=== PATIENT | female | born 1985 | race Caucasian/White ===

== ENCOUNTER 2016-12-15 07:57 | Emergency (ER) | payer OTHER ==
[2016-12-15] MEDS ORDERED: Sodium Chloride 0.9% 1,000 ML IV ONE ×3 (08:04→11:13)
[2016-12-15] MEDS ORDERED: Sodium Chloride 0.9% 2.5 ML Syringe FLUSH PRN (08:05)
[2016-12-15] MEDS ORDERED: Sodium Chloride 0.9% 10 ML Syringe FLUSH PRN (08:05)
--- NOTE | 2016-12-15 08:19 | EDM.PDOC ---
ED HPI GENERAL MEDICAL PROBLEM - General Chief Complaint: Gastrointestinal Problem Stated Complaint: AMBULANCE Time Seen by Provider: 12/15/16 07:59 Source of Information: Reports: Patient History Limitations: Reports: No Limitations - History of Present Illness INITIAL COMMENTS - FREE TEXT/NARRATIVE: History of present illness: [] Patient awoke this morning with severe dizziness described as spinning with nausea and vomiting. She vomited several times before calling an ambulance she is unable to move secondary to the dizziness. She denies any recent illnesses nasal congestion ear pain but states her throat has been hurting secondary to enterococcal within normal. Review of systems: As per history of present illness and below otherwise all systems reviewed and negative. Past medical history: As per history of present illness and as reviewed below otherwise noncontributory. Surgical history: As per history of present illness and as reviewed below otherwise noncontributory. Social history: No reported history of drug or alcohol abuse. Family history: As per history of present illness and as reviewed below otherwise noncontributory. Physical exam: General: Well developed, well nourished in NAD HEENT: Atraumatic, normocephalic, pupils reactive, negative for conjunctival pallor or scleral icterus, mucous membranes moist, throat clear, neck supple, nontender, trachea midline. Lungs: Clear to auscultation, breath sounds equal bilaterally, chest nontender. Heart: S1S2, regular, negative for clicks, rubs, or JVD. Abdomen: Soft, nondistended, nontender. Negative for masses or hepatosplenomegaly. Negative for costovertebral tenderness. Pelvis: Stable nontender. Genitourinary: Deferred. Rectal: Deferred. Extremities: Atraumatic, negative for cords or calf pain. Neurovascular unremarkable. Neuro: Awake, alert, oriented. Cranial nerves II through XII unremarkable. Cerebellum unremarkable. Motor and sensory unremarkable throughout. Exam nonfocal. Diagnostics: [] Labs were checked Therapeutics: [] IV hydration, meclizine Zofran and Valium given with minimal improvement she was hydrated with 3 L of normal saline and Phenergan given finely worked. Impression: [] Benign positional vertigo Plan: [] Followup PMD, meclizine 3 times a day as needed for nausea and meclizine 25 mg 3 times a day or dizziness Definitive disposition and diagnosis as appropriate pending reevaluation and review of above. - Related Data Allergies Allergy/AdvReac Type Severity Reaction Status Date / Time No Known Allergies Allergy Verified 12/15/16 08:04 Home Meds: Home Meds Meclizine [Antivert] 25 mg PO TID PRN #30 tablet 12/15/16 [Rx] Ondansetron HCl [Zofran] 4 mg PO Q6HR PRN #12 tablet 12/15/16 [Rx] Promethazine [Phenergan] 25 mg PO Q4H PRN #12 tablet 12/15/16 [Rx] Past Medical History - Past Health History Medical/Surgical History: Denies Medical/Surgical History - Past Surgical History GI Surgical History: Reports: Cholecystectomy Female Surgical History: Reports: section Social & Family History - Family History Family Medical History: Noncontributory - Tobacco Use Smoking Status *Q: Never Smoker - Recreational Drug Use Recreational Drug Use: No ED ROS GENERAL - Review of Systems Review Of Systems: See Below (See history of present illness) ED EXAM, NEURO - Physical Exam Exam: See Below (See history of present illness) Course - Vital Signs Last Recorded V/S: Last Vital Signs Temp 35.8 C 12/15/16 08:02 Pulse 87 12/15/16 13:42 Resp 16 12/15/16 13:42 BP 129/74 12/15/16 13:42 Pulse Ox 98 12/15/16 13:42 - Orders/Labs/Meds Orders: Active Orders 24 hr Category Date Time Status Sodium Chloride 0.9% [Saline Flush] Med 12/15/16 08:05 Active 10 ml FLUSH ASDIRECTED PRN Sodium Chloride 0.9% [Saline Flush] Med 12/15/16 08:05 Active 2.5 ml FLUSH ASDIRECTED PRN Peripheral IV Insertion Adult [OM.PC] Stat Oth 12/15/16 08:04 Ordered Medication Orders Sodium Chloride (Saline Flush) 10 ml FLUSH ASDIRECTED PRN PRN Reason: Keep Vein Open Sodium Chloride (Saline Flush) 2.5 ml FLUSH ASDIRECTED PRN PRN Reason: Keep Vein Open Labs: Laboratory Tests 12/15/16 12/15/16 12/15/16 Range/Units 08:14 08:14 08:14 WBC 7.91 (4.0-11.0) K/uL RBC 4.65 (4.30-5.90) M/uL Hgb 14.2 (12.0-16.0) g/dL Hct 40.3 (36.0-46.0) % MCV 86.7 (80.0-98.0) fL MCH 30.5 (27.0-32.0) pg MCHC 35.2 (31.0-37.0) g/dL RDW Std Deviation 40.6 (28.0-62.0) fl RDW Coeff of Aziza 13 (11.0-15.0) % Plt Count 241 (150-400) K/uL MPV 10.60 (7.40-12.00) fL Neut % (Auto) 77.9 (48.0-80.0) % Lymph % (Auto) 15.7 L (16.0-40.0) % [place] % (Auto) 4.6 (0.0-15.0) % Eos % (Auto) 1.5 (0.0-7.0) % Baso % (Auto) 0.3 (0.0-1.5) % Neut # (Auto) 6.2 H (1.4-5.7) K/uL Lymph # (Auto) 1.2 (0.6-2.4) K/uL [place] # (Auto) 0.4 (0.0-0.8) K/uL Eos # (Auto) 0.1 (0.0-0.7) K/uL Baso # (Auto) 0.0 (0.0-0.1) K/uL Nucleated RBC % 0.0 /100WBC Nucleated RBCs # 0 K/uL Sodium 139 (136-146) mmol/L Potassium 3.8 (3.5-5.1) mmol/L Chloride 109 (98-110) mmol/L Carbon Dioxide 16 L (21-31) mmol/L BUN 19 (6.0-23.0) mg/dL Creatinine 1.1 (0.6-1.5) mg/dL Est Cr Clr Drug Dosing 81.30 mL/min Estimated GFR (MDRD) 57.2 ml/min Glucose 175 H (60-110) mg/dL Calcium 9.5 (8.8-10.8) mg/dL Total Bilirubin 1.1 (0.1-1.5) mg/dL AST 19 (5-40) IU/L ALT 22 (8-54) IU/L Alkaline Phosphatase 40 (40-150) Total Protein 7.3 (6.0-8.0) g/dL Albumin 4.7 (3.5-5.0) g/dL Globulin 2.6 (2.0-3.5) g/dL Albumin/Globulin Ratio 1.8 (1.3-2.8) HCG, Qual NEGATIVE (NEG) Urine Color Urine Appearance Urine pH (5.0-8.0) Ur Specific [place] (1.001-1.035) Urine Protein (NEGATIVE) mg/dL Urine Glucose (UA) (NEGATIVE) mg/dL Urine Ketones (NEGATIVE) mg/dL Urine Occult Blood (NEGATIVE) Urine Nitrite (NEGATIVE) Urine Bilirubin (NEGATIVE) Urine Urobilinogen (<2.0) EU/dL Ur Leukocyte Esterase (NEGATIVE) Urine RBC (0-2/HPF) Urine WBC (0-5/HPF) Ur Epithelial Cells (NONE-FEW) Urine Bacteria (NEGATIVE) 12/15/16 Range/Units 12:35 WBC (4.0-11.0) K/uL RBC (4.30-5.90) M/uL Hgb (12.0-16.0) g/dL Hct (36.0-46.0) % MCV (80.0-98.0) fL MCH (27.0-32.0) pg MCHC (31.0-37.0) g/dL RDW Std Deviation (28.0-62.0) fl RDW Coeff of Aziza (11.0-15.0) % Plt Count (150-400) K/uL MPV (7.40-12.00) fL Neut % (Auto) (48.0-80.0) % Lymph % (Auto) (16.0-40.0) % [place] % (Auto) (0.0-15.0) % Eos % (Auto) (0.0-7.0) % Baso % (Auto) (0.0-1.5) % Neut # (Auto) (1.4-5.7) K/uL Lymph # (Auto) (0.6-2.4) K/uL [place] # (Auto) (0.0-0.8) K/uL Eos # (Auto) (0.0-0.7) K/uL Baso # (Auto) (0.0-0.1) K/uL Nucleated RBC % /100WBC Nucleated RBCs # K/uL Sodium (136-146) mmol/L Potassium (3.5-5.1) mmol/L Chloride (98-110) mmol/L Carbon Dioxide (21-31) mmol/L BUN (6.0-23.0) mg/dL Creatinine (0.6-1.5) mg/dL Est Cr Clr Drug Dosing mL/min Estimated GFR (MDRD) ml/min Glucose (60-110) mg/dL Calcium (8.8-10.8) mg/dL Total Bilirubin (0.1-1.5) mg/dL AST (5-40) IU/L ALT (8-54) IU/L Alkaline Phosphatase (40-150) Total Protein (6.0-8.0) g/dL Albumin (3.5-5.0) g/dL Globulin (2.0-3.5) g/dL Albumin/Globulin Ratio (1.3-2.8) HCG, Qual (NEG) Urine Color YELLOW Urine Appearance CLEAR Urine pH 6.5 (5.0-8.0) Ur Specific [place] 1.015 (1.001-1.035) Urine Protein NEGATIVE (NEGATIVE) mg/dL Urine Glucose (UA) NEGATIVE (NEGATIVE) mg/dL Urine Ketones 40 H (NEGATIVE) mg/dL Urine Occult Blood LARGE H (NEGATIVE) Urine Nitrite NEGATIVE (NEGATIVE) Urine Bilirubin NEGATIVE (NEGATIVE) Urine Urobilinogen 0.2 (<2.0) EU/dL Ur Leukocyte Esterase NEGATIVE (NEGATIVE) Urine RBC 2-4 (0-2/HPF) Urine WBC 0-2 (0-5/HPF) Ur Epithelial Cells FEW (NONE-FEW) Urine Bacteria FEW (NEGATIVE) Meds: Medications Generic Name Dose Route Start Last Admin Trade Name Freq PRN Reason Stop Dose Admin Sodium Chloride 10 ml 12/15/16 08:05 Saline Flush FLUSH ASDIRECTED PRN Keep Vein Open Sodium Chloride 2.5 ml 12/15/16 08:05 Saline Flush FLUSH ASDIRECTED PRN Keep Vein Open Discontinued Medications Generic Name Dose Route Start Last Admin Trade Name Freq PRN Reason Stop Dose Admin Diazepam 2.5 mg 12/15/16 08:06 12/15/16 08:16 Valium IVPUSH 12/15/16 08:07 2.5 mg ONETIME ONE Administration Diazepam 2.5 mg 12/15/16 09:06 12/15/16 09:10 Valium IVPUSH 12/15/16 09:07 2.5 mg ONETIME ONE Administration Sodium Chloride 1,000 mls @ 999 mls/hr 12/15/16 08:04 12/15/16 08:13 Normal Saline IV 12/15/16 09:04 999 mls/hr .Bolus ONE Administration Sodium Chloride 1,000 mls @ 999 mls/hr 12/15/16 09:39 12/15/16 09:42 Normal Saline IV 12/15/16 10:39 999 mls/hr .Bolus ONE Administration Sodium Chloride 1,000 mls @ 999 mls/hr 12/15/16 11:13 12/15/16 11:18 Normal Saline IV 12/15/16 12:13 999 mls/hr .Bolus ONE Administration Meclizine HCl 25 mg 12/15/16 09:58 12/15/16 10:02 Antivert PO 12/15/16 09:59 25 mg ONETIME ONE Administration Ondansetron HCl 4 mg 12/15/16 09:10 12/15/16 09:14 Zofran IVPUSH 12/15/16 09:11 4 mg ONETIME ONE Administration Promethazine HCl 25 mg 12/15/16 12:40 12/15/16 12:46 Phenergan IM 12/15/16 12:41 25 mg ONETIME ONE Administration Departure - Departure Time of Disposition: 14:12 Disposition: Home, Self-Care 01 Condition: good Clinical Impression: Benign positional vertigo Qualifiers: Laterality: unspecified laterality Qualified Code(s): H81.10 - Benign paroxysmal vertigo, unspecified ear - Discharge Information Prescriptions: Ondansetron HCl [Zofran] 4 mg PO Q6HR PRN #12 tablet PRN Reason: Nausea Meclizine [Antivert] 25 mg PO TID PRN #30 tablet PRN Reason: Dizziness Promethazine [Phenergan] 25 mg PO Q4H PRN #12 tablet PRN Reason: Nausea Referrals: PCP,None [Primary Care Provider] - Forms: ED Department Discharge Additional Instructions: The following information is given to patients seen in the emergency department who are being discharged to home. This information is to outline your options for follow-up care. We provide all patients seen in our emergency department with a follow-up referral. The need for follow-up, as well as the timing and circumstances, are variable depending upon the specifics of your emergency department visit. If you don't have a primary care physician on staff, we will provide you with a referral. We always advise you to contact your personal physician following an emergency department visit to inform them of the circumstance of the visit and for follow-up with them and/or the need for any referrals to a consulting specialist. The emergency department will also refer you to a specialist when appropriate. This referral assures that you have the opportunity for follow-up care with a specialist. All of these measure are taken in an effort to provide you with optimal care, which includes your follow-up. Under all circumstances we always encourage you to contact your private physician who remains a resource for coordinating your care. When calling for follow-up care, please make the office aware that this follow-up is from your recent emergency room visit. If for any reason you are refused follow-up, please contact the [facility] Emergency Department at and asked to speak to the emergency department charge nurse. Meclizine 3 times a day as needed for dizziness and Zofran for nausea Followup PMD [facility] [address] [place] [id number] - My Orders Last 24 Hours: My Active Orders 12/15/16 08:04 Peripheral IV Insertion Adult [OM.PC] Stat 12/15/16 08:05 Sodium Chloride 0.9% [Saline Flush] 10 ml FLUSH ASDIRECTED PRN Sodium Chloride 0.9% [Saline Flush] 2.5 ml FLUSH ASDIRECTED PRN - Assessment/Plan Last 24 Hours: My Active Orders 12/15/16 08:04 Peripheral IV Insertion Adult [OM.PC] Stat 12/15/16 08:05 Sodium Chloride 0.9% [Saline Flush] 10 ml FLUSH ASDIRECTED PRN Sodium Chloride 0.9% [Saline Flush] 2.5 ml FLUSH ASDIRECTED PRN
[2016-12-15] MEDS ORDERED: Ondansetron 4 MG/2 ML SDV IVPUSH ONE (09:10)
[2016-12-15] MEDS ORDERED: Meclizine 25 MG Tab PO ONE (09:58)
[2016-12-15] MEDS ORDERED: Promethazine 25 MG/ML SDV IM ONE (12:40)
[2016-12-15 14:26] VITALS: BP 129/76
== END 2016-12-15 14:22 | disposition home or self-care (01) ==
LOC: MW.ED 07:57
DX: H81.10 Benign paroxysmal vertigo, unspecified ear (principal); Z90.49 Acquired absence of other specified parts of digestive tract
CPT/HCPCS: 36415; 80053; 81001; 84703; 85025; 96361; 96372; 96374; 96375; 96376; 99285; A9270; J2405; J2550; J3360; J7040; 99284

== ENCOUNTER 2021-04-09 05:15 | Inpatient (IN) | payer MEDICAID ==
[2021-04-09] MEDS ORDERED: Sodium Chloride 0.9% 2.5 ML Syringe FLUSH PRN (06:32)
[2021-04-09] MEDS ORDERED: Sodium Chloride 0.9% 10 ML Syringe FLUSH PRN (06:32)
[2021-04-09] MEDS ORDERED: Sodium Chloride 0.9% 10 ML SDV IV PRN (06:32)
[2021-04-09] MEDS ORDERED: ceFAZolin 2 GM in Premix Bag 1 BAG IV ONE (06:32)
[2021-04-09] MEDS ORDERED: Citric Acid/Sodium Citrate Solution 30 ML Cup PO ONE (06:32)
[2021-04-09] MEDS ORDERED: Oxytocin/0.9 % Sodium Chloride 30 UNIT/500 ML BAG IV SCH (06:45)
[2021-04-09] MEDS: Lactated Ringers 1,000 ML IV SCH ×5 (06:46→22:10)
[2021-04-09] MEDS ORDERED: fentaNYL 100 MCG/2 ML SDV ONE (07:23)
[2021-04-09] MEDS ORDERED: Ketorolac 30 MG/ML SDV ONE (07:23)
[2021-04-09] MEDS ORDERED: Oxytocin 10 Units/1 ML SDV ONE (07:23)
[2021-04-09] MEDS ORDERED: Ondansetron 4 MG/2 ML SDV ONE (07:23)
[2021-04-09] MEDS ORDERED: Morphine PF 10 MG/10 ML SDV ONE (07:24)
--- NOTE | 2021-04-09 07:40 | PCM.PREANE ---
Preanesthetic Assessment - Anesthesia/Transfusion/Family Hx Anesthesia History: Prior Anesthesia Without Reaction Other Type of Anesthesia Reaction Comment: hypotension and nausea with Epidural Family History of Anesthesia Reaction: No Transfusion History: No Prior Transfusion(s) - Review of Systems General: No Symptoms Pulmonary: No Symptoms Cardiovascular: No Symptoms Gastrointestinal: No Symptoms Neurological: No Symptoms Other: Reports: None - Physical Assessment NPO Status Date: 04/09/21 NPO Status Time: 00:00 Height: 5 ft 10 in Weight: 277 lb ASA Class: 2 Mental Status: Alert & Oriented x3 Airway Class: Mallampati = 3 Dentition: Reports: Normal Dentition ROM/Head Extension: Full Lungs: Clear to Auscultation, Normal Respiratory Effort Cardiovascular: Regular Rate, Regular Rhythm - Lab Values: Laboratory Last Values WBC 8.46 K/uL (4.0-11.0) 04/09/21 06:25 RBC 3.92 M/uL (4.30-5.90) L 04/09/21 06:25 Hgb 11.6 g/dL (12.0-16.0) L 04/09/21 06:25 Hct 34.1 % (36.0-46.0) L 04/09/21 06:25 MCV 87.0 fL (80.0-98.0) 04/09/21 06:25 MCH 29.6 pg (27.0-32.0) 04/09/21 06:25 MCHC 34.0 g/dL (31.0-37.0) 04/09/21 06:25 RDW Std Deviation 45.7 fl (28.0-62.0) 04/09/21 06:25 RDW Coeff of Aziza 14 % (11.0-15.0) 04/09/21 06:25 Plt Count 127 K/uL (150-400) L 04/09/21 06:25 MPV 11.80 fL (7.40-12.00) 04/09/21 06:25 Nucleated RBC % 0.0 /100WBC 04/09/21 06:25 Nucleated RBCs # 0 K/uL 04/09/21 06:25 - Allergies Allergies/Adverse Reactions: Allergies Allergy/AdvReac Type Severity Reaction Status Date / Time No Known Allergies Allergy Verified 04/09/21 05:21 - Blood Blood Available: Yes Product(s) Available: PRBC, FFP, Platelets - Anesthesia Plan Pre-Op Medication Ordered: None - Acknowledgements Anesthesia Type Planned: Spinal Pt an Appropriate Candidate for the Planned Anesthesia: Yes Alternatives and Risks of Anesthesia Discussed w Pt/Guardian: Yes Pt/Guardian Understands and Agrees with Anesthesia Plan: Yes PreAnesthesia Questionnaire - Past Health History Medical/Surgical History: Denies Medical/Surgical History HEENT History: Reports: Other (See Below) Other HEENT History: wears glasses/contacts Cardiovascular History: Reports: None Respiratory History: Reports: None Gastrointestinal History: Reports: Other (See Below) Other Gastrointestinal History: heartburn during pregnency- takes Rolaids Genitourinary History: Reports: None 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: Reports: Endometriosis, Musculoskeletal History: Reports: None Neurological History: Reports: Vertigo Other Neuro History: hx of vertigo- not recently Psychiatric History: Reports: Anxiety Endocrine/Metabolic History: Reports: Obesity/BMI 30+ Hematologic History: Reports: None Immunologic History: Reports: None Oncologic (Cancer) History: Reports: None Dermatologic History: Reports: Psoriasis Other Dermatologic History: on scalp - Infectious Disease History Infectious Disease History: Reports: Chicken Pox - Past Surgical History Head Surgeries/Procedures: Reports: None HEENT Surgical History: Reports: None Cardiovascular Surgical History: Reports: None Respiratory Surgical History: Reports: None GI Surgical History: Reports: Cholecystectomy Female Surgical History: Reports: Section Other Female Surgeries/Procedures: Laparoscopy for removal of Endometreosis Endocrine Surgical History: Reports: None Neurological Surgical History: Reports: None Musculoskeletal Surgical History: Reports: None Oncologic Surgical History: Reports: None - SUBSTANCE USE Tobacco Use Status *Q: Former Tobacco User Tobacco Use Within Last Twelve Months: Cigarettes Second Hand Smoke Exposure: No Recreational Drug Use History: No - HOME MEDS Home Medications: Home Meds Docosahexaenoic Acid [DHA] 1 tab PO BID 04/06/21 [History] Escitalopram [Lexapro] 10 mg PO DAILY 04/06/21 [History] Pnv No.95/Ferrous Fum/Folic AC [ Caplet] 1 tab PO DAILY 04/06/21 [History] - CURRENT (IN HOUSE) MEDS Current Meds: Current Medications Oxytocin/Sodium Chloride (Oxytocin 30 Unit/500 Ml-Ns) 30 unit in 500 mls @ 250 mls/hr IV TITRATE MONICA Lactated Ringer's (Ringers, Lactated) 1,000 mls @ 500 mls/hr IV BOLUS MONICA Last Admin: 04/09/21 07:19 Dose: 999 mls/hr Documented by: Sodium Chloride (Sodium Chloride 0.9% 10 Ml Syringe) 10 ml FLUSH ASDIRECTED PRN PRN Reason: Keep Vein Open Sodium Chloride (Sodium Chloride 0.9% 2.5 Ml Syringe) 2.5 ml FLUSH ASDIRECTED PRN PRN Reason: Keep Vein Open Sodium Chloride (Sodium Chloride 0.9% 10 Ml Sdv) 10 ml IV ASDIRECTED PRN PRN Reason: IV Use Discontinued Medications Citric Acid/Sodium Citrate (Citric Acid/Sodium Citrate Solution 30 Ml Cup) 30 ml PO ONETIME ONE Stop: 04/09/21 06:33 Fentanyl (Fentanyl 100 Mcg/2 Ml Sdv) Confirm Administered Dose 100 mcg .ROUTE .STK-MED ONE Stop: 04/09/21 07:24 Cefazolin Sodium/Dextrose 2 gm (/ Premix) 50 mls @ 100 mls/hr IV ONETIME ONE Stop: 04/09/21 07:01 Ketorolac Tromethamine (Ketorolac 30 Mg/Ml Sdv) Confirm Administered Dose 30 mg .ROUTE .STK-MED ONE Stop: 04/09/21 07:24 Miscellaneous Medication (Phenylephrine Hcl In 0.9% Nacl 1 Mg/10 Ml Syringe) Confirm Administered Dose 1 mg .ROUTE .STK-MED ONE Stop: 04/09/21 07:24 Morphine Sulfate (Morphine Pf 10 Mg/10 Ml Sdv) Confirm Administered Dose 10 mg .ROUTE .STK-MED ONE Stop: 04/09/21 07:25 Ondansetron HCl (Ondansetron 4 Mg/2 Ml Sdv) Confirm Administered Dose 4 mg .ROUTE .STK-MED ONE Stop: 04/09/21 07:24 Oxytocin (Oxytocin 10 Units/1 Ml Sdv) Confirm Administered Dose 30 unit .ROUTE .STK-MED ONE Stop: 04/09/21 07:24
[2021-04-09] MEDS ORDERED: ceFAZolin 1 GM Vial ONE (08:13)
[2021-04-09] MEDS ORDERED: Bisacodyl 10 MG Supp RECTAL PRN (09:20)
[2021-04-09] MEDS ORDERED: Lanolin 100% Cream 7 GM Tube TOP PRN (09:20)
[2021-04-09] MEDS ORDERED: Methylergonovine 0.2 MG/1 ML Amp IM PRN (09:20)
[2021-04-09] MEDS ORDERED: Misoprostol 200 MCG Tab RECTAL PRN (09:20)
[2021-04-09] MEDS ORDERED: Ondansetron 4 MG/2 ML SDV IVPUSH PRN ×2 (09:20→11:15)
[2021-04-09] MEDS ORDERED: Oxytocin 10 Units/1 ML SDV IM PRN (09:20)
[2021-04-09] MEDS ORDERED: Acetaminophen/oxyCODONE 325-5 MG Tab PO PRN ×3 (09:20→11:15)
[2021-04-09] MEDS ORDERED: Tranexamic Acid 1,000 MG in Sodium Chloride 0.9% 100 ML IV PRN (09:20)
[2021-04-09] MEDS ORDERED: diphenhydrAMINE 50 MG/ML SDV IVPUSH PRN ×2 (09:20→11:15)
[2021-04-09] MEDS ORDERED: Oxytocin/Lactated Ringers 30 UNIT/500 ML BAG IV SCH (09:30)
--- NOTE | 2021-04-09 09:44 | PCM.OPNOTE ---
<Rajni Duffy - Last Filed: 04/09/21 09:54> - General Post-Op/Procedure Note Date of Surgery/Procedure: 04/09/21 Operative Procedure(s): section x2 Findings: Viable male . Apgars 8 and 9. Weight 4330. Intact placenta delivered with 3 vessel cord. care complicated by maternal obesity. 4 cm subserosal fibroid located in right cornua Pre Op Diagnosis: 39w2d IUP previous c section desires repeat. Post-Op Diagnosis: Same Anesthesia Technique: Spinal Primary Surgeon: Shital Cohen Precision Grinder: Rajni Duffy Fluid Replacement, Intraop: 2,000 Output, Urine Amount: 300 EBL in mLs: 600 Complications: None known Condition: Stable <Shital Cohen - Last Filed: 04/10/21 09:50> - General Post-Op/Procedure Note Free Text/Narrative:: Intake & Output 04/09/21 04/10/21 04/10/21 22:59 06:59 14:59 Intake Total 1764 1698 Output Total 300 1100 600 Balance 1464 598 -600 Agree with above
--- NOTE | 2021-04-09 09:54 | PCM.POSTAN ---
POST ANESTHESIA ASSESSMENT - MENTAL STATUS Mental Status: Alert, Oriented - RESPIRATORY Respiratory Status: Respiratory Rate WNL, Airway Patent, O2 Saturation Stable - CARDIOVASCULAR CV Status: Pulse Rate WNL, Blood Pressure Stable - GASTROINTESTINAL GI Status: No Symptoms - POST OP HYDRATION Hydration Status: Adequate & Stable
--- NOTE | 2021-04-09 09:55 | PCM48HPAN ---
Post Anesthesia Note - EVALUATION WITHIN 48HRS OF ANESTHETIC Vital Signs in Normal Range: Yes Patient Participated in Evaluation: Yes Respiratory Function Stable: Yes Airway Patent: Yes Cardiovascular Function Stable: Yes Hydration Status Stable: Yes Pain Control Satisfactory: Yes Nausea and Vomiting Control Satisfactory: Yes Mental Status Recovered: Yes
[2021-04-09] MEDS: Ketorolac 30 MG/ML SDV IVPUSH SCH ×3 (10:01→20:59)
[2021-04-09] MEDS ORDERED: Naloxone 0.4 MG/ML Syringe IVPUSH PRN (11:15)
[2021-04-09] MEDS ORDERED: Nalbuphine 10 MG/1 ML Vial IVPUSH PRN (11:15)
[2021-04-09] MEDS ORDERED: ePHEDrine 50 MG/ML SDV IVPUSH PRN (11:15)
[2021-04-09] MEDS ORDERED: fentaNYL 100 MCG/2 ML SDV IVPUSH PRN (11:15)
--- NOTE | 2021-04-09 13:40 | OR ---
SURGEON: SHITAL COHEN MD DATE OF PROCEDURE: 04/09/2021 PREOPERATIVE DIAGNOSES: 1. A 39 weeks and 2 days intrauterine . 2. Previous section x1. 3. Declines vaginal after . 4. Advanced maternal age. 5. Maternal obesity. 6. Group B Streptococcus positive. POSTOPERATIVE DIAGNOSES: 1. A 39 weeks and 2 days intrauterine . 2. Previous section x1. 3. Declines vaginal after . 4. Advanced maternal age. 5. Maternal obesity. 6. Group B Streptococcus positive. PROCEDURES: Repeat low transverse section. PRIMARY SURGEON: Shital Cohen MD POP SINGER: CHAN Coronel ANESTHESIA: CSE. COMPLICATIONS: None known. ESTIMATED BLOOD LOSS: 600 mL. INTRAVENOUS FLUIDS: 2000 mL of crystalloid. URINE OUTPUT: 300 mL of clear urine at the end of the procedure. INDICATIONS: The patient is a 35-year-old 2, para 1 at 39 weeks and 2 days with a history of previous section. Declines . FINDINGS: Normal-appearing male in cephalic presentation. Meconium-stained amniotic fluid. scores of 8 and 9. Weight 9 pounds 9 ounces. Normal- appearing fallopian tubes and ovaries. Uterus with approximately 4 cm subserosal fibroid located near the right cornua. PROCEDURE IN DETAIL: The patient was taken to the operating room where epidural was found to be adequate. She was prepped and draped in the normal sterile fashion in a dorsal supine position with a leftward tilt. Skin incision was made with scalpel and carried out to the underlying layer of fascia, which was incised in the midline. The fascial incision was then extended out laterally with Martinez scissors bilaterally. The superior aspect of the fascial incision was then grasped with Kerri clamps, elevated, and dissected off the rectus muscles with Mayopeggy. The inferior aspect of the fascial incision was grasped with Kochers and in a likewise manner was elevated and dissected off with Mayos. The peritoneum was then grasped with 2 hemostats, elevated, and entered sharply with Metzenbaum scissors. The incision was then extended with good visualization of the bladder. An Toribio O-ring was then inserted for further retraction. The bladder flap was then created with Metzenbaum scissors and extended digitally. Uterine incision was then created in a transverse fashion in the lower uterine segment with a scalpel and extended digitally. Amniotic sac was ruptured with an Allis clamp. Meconium-stained fluid noted. Infant's head delivered atraumatically. Nuchal cord noted x1 and reduced without difficulty. Nose and mouth were suctioned with bulb and following the delivery, the rest of the baby's body. Cord was clamped and cut, handed off to awaiting nursing staff. Arterial venous and cord blood gases were then obtained. The placenta was then expressed in the usual fashion. Abdomen was cleared of all clots and debris. The uterine incision was then repaired in a running locked fashion with 0 Monocryl. A second suture of the same was then used to imbricate the incision. Excellent hemostasis was noted. The uterus was then returned to the abdomen. Gutters cleared of all clots and debris. The Toribio O-ring was removed. The peritoneum was then closed in a running fashion with 0 Vicryl. The fascia was then closed with 0 Vicryl in a running fashion. The incision was irrigated. Hemostasis assured. Subcutaneous tissue was closed with 3-0 plain gut and skin was closed with 3-0 Monocryl on a Williams needle. Sponge, lap, and needle count were correct x2. Prophylactic antibiotics were given prior to the procedure. The patient tolerated the procedure well and was recovering in room with infant. FLAKITA / VLADIMIR /[id number] HERB
[2021-04-09] MEDS: Docusate Sodium 100 MG Cap PO SCH (21:04)
[2021-04-10] MEDS: Ketorolac 30 MG/ML SDV IVPUSH SCH ×2 (03:36→09:07)
--- NOTE | 2021-04-10 08:55 | PCM.PNPP ---
<Rajni Duffy - Last Filed: 04/10/21 08:58> - General Info Date of Service: 04/10/21 Admission Dx/Problem (Free Text): Repeat section x2 Subjective Update: No concerns overnight. Catheter out this morning, urinating spontaneously. Denies dizziness, lightheadedness, or headache. Functional Status: Reports: Pain Controlled - Review of Systems General: Reports: No Symptoms HEENT: Reports: No Symptoms Pulmonary: Reports: No Symptoms Cardiovascular: Reports: No Symptoms Gastrointestinal: Reports: No Symptoms Genitourinary: Reports: No Symptoms Musculoskeletal: Reports: No Symptoms Skin: Reports: No Symptoms Neurological: Reports: No Symptoms Psychiatric: Reports: No Symptoms - General Info Date of Service: 04/10/21 - Patient Data Vital Signs - Most Recent: Last Vital Signs Temp 36.3 C 04/10/21 08:00 Pulse 89 04/10/21 08:00 Resp 18 04/10/21 08:00 BP 121/69 04/10/21 08:00 Pulse Ox 95 04/10/21 08:00 Weight - Most Recent: 277 lb I&O - Last 24 Hours: Intake & Output 04/09/21 04/10/21 04/10/21 22:59 06:59 14:59 Intake Total 1764 1698 Output Total 300 1100 600 Balance 1464 598 -600 Lab Results - Last 24 Hours: Laboratory Results - last 24 hr 04/09/21 04/10/21 Range/Units 06:25 04:53 WBC 7.23 (4.0-11.0) K/uL RBC 3.08 L (4.30-5.90) M/uL Hgb 9.1 L (12.0-16.0) g/dL Hct 26.2 L (36.0-46.0) % MCV 85.1 (80.0-98.0) fL MCH 29.5 (27.0-32.0) pg MCHC 34.7 (31.0-37.0) g/dL RDW Std Deviation 45.0 (28.0-62.0) fl RDW Coeff of Aziza 15 (11.0-15.0) % Plt Count 120 L (150-400) K/uL MPV 11.80 (7.40-12.00) fL Blood Type B POSITIVE Antibody Screen NEGATIVE Med Orders - Current: Current Medications Bisacodyl (Bisacodyl 10 Mg Supp) 10 mg RECTAL ONETIME PRN PRN Reason: Constipation Diphenhydramine HCl (Diphenhydramine 50 Mg/Ml Sdv) 25 mg IVPUSH Q6H PRN PRN Reason: Itching or Nausea Diphenhydramine HCl (Diphenhydramine 50 Mg/Ml Sdv) 12.5 mg IVPUSH Q2H PRN PRN Reason: Itching Docusate Sodium (Docusate Sodium 100 Mg Cap) 100 mg PO BID [facility] Last Admin: 04/09/21 21:04 Dose: 100 mg Documented by: Emollient Ointment (Lanolin 100% Cream 7 Gm Tube) 0 gm TOP ASDIRECTED PRN PRN Reason: Sore Nipples Ephedrine Sulfate (Ephedrine 50 Mg/Ml Sdv) 10 mg IVPUSH Q5M PRN PRN Reason: Hypotension Fentanyl (Fentanyl 100 Mcg/2 Ml Sdv) 50 mcg IVPUSH Q1H PRN PRN Reason: Pain (severe 7-10) Oxytocin/Sodium Chloride (Oxytocin 30 Unit/500 Ml-Ns) 30 unit in 500 mls @ 250 mls/hr IV TITRATE [facility] Lactated Ringer's (Ringers, Lactated) 1,000 mls @ 500 mls/hr IV BOLUS [facility] Last Admin: 04/09/21 07:43 Dose: 150 mls/hr Documented by: Lactated Ringer's (Ringers, Lactated) 1,000 mls @ 125 mls/hr IV ASDIRECTED [facility] Last Admin: 04/09/21 22:10 Dose: 125 mls/hr Documented by: Oxytocin/Lactated Ringer's (Pitocin In Lr 30 Units/500 Ml) 30 unit in 500 mls @ 250 mls/hr IV TITRATE [facility]; Protocol Tranexamic Acid 1,000 mg/ (Sodium Chloride) 110 mls @ 660 mls/hr IV ONETIME PRN PRN Reason: Bleeding Ibuprofen (Ibuprofen 800 Mg Tab) 800 mg PO Q8H PRN PRN Reason: mild pain or fever Ketorolac Tromethamine (Ketorolac 30 Mg/Ml Sdv) 30 mg IVPUSH Q6H [facility] Stop: 04/10/21 09:31 Last Admin: 04/10/21 03:36 Dose: 30 mg Documented by: Methylergonovine Maleate (Methylergonovine 0.2 Mg/1 Ml Amp) 0.2 mg IM ONETIME PRN PRN Reason: Excessive Vaginal Bleeding Misoprostol (Misoprostol 200 Mcg Tab) 1,000 mcg RECTAL ONETIME PRN PRN Reason: excessive bleeding Nalbuphine HCl (Nalbuphine 10 Mg/1 Ml Vial) 5 mg IVPUSH ASDIRECTED PRN PRN Reason: Itching Naloxone HCl (Naloxone 0.4 Mg/Ml Syringe) 0.1 mg IVPUSH ONETIME PRN PRN Reason: Respiratory Depression Stop: 04/10/21 11:15 Ondansetron HCl (Ondansetron 4 Mg/2 Ml Sdv) 4 mg IVPUSH Q4H PRN PRN Reason: Nausea/Vomiting Ondansetron HCl (Ondansetron 4 Mg/2 Ml Sdv) 4 mg IVPUSH Q6H PRN PRN Reason: Nausea Oxycodone/Acetaminophen (Acetaminophen/Oxycodone 325-5 Mg Tab) 1 tab PO Q4H PRN PRN Reason: Pain (severe 7-10) Oxycodone/Acetaminophen (Acetaminophen/Oxycodone 325-5 Mg Tab) 2 tab PO Q4H PRN PRN Reason: Pain (severe 7-10) Oxycodone/Acetaminophen (Acetaminophen/Oxycodone 325-5 Mg Tab) 2 tab PO Q6H PRN PRN Reason: Pain (moderate 4-6) Oxytocin (Oxytocin 10 Units/1 Ml Sdv) 10 unit IM ASDIRECTED PRN PRN Reason: Excessive Vaginal Bleeding Sodium Chloride (Sodium Chloride 0.9% 10 Ml Syringe) 10 ml FLUSH ASDIRECTED PRN PRN Reason: Keep Vein Open Sodium Chloride (Sodium Chloride 0.9% 2.5 Ml Syringe) 2.5 ml FLUSH ASDIRECTED PRN PRN Reason: Keep Vein Open Sodium Chloride (Sodium Chloride 0.9% 10 Ml Sdv) 10 ml IV ASDIRECTED PRN PRN Reason: IV Use Discontinued Medications Cefazolin Sodium (Cefazolin 1 Gm Vial) Confirm Administered Dose 2 gm .ROUTE .STK-MED ONE Stop: 04/09/21 08:14 Citric Acid/Sodium Citrate (Citric Acid/Sodium Citrate Solution 30 Ml Cup) 30 ml PO ONETIME ONE Stop: 04/09/21 06:33 Last Admin: 04/09/21 09:59 Dose: Not Given Documented by: Fentanyl (Fentanyl 100 Mcg/2 Ml Sdv) Confirm Administered Dose 100 mcg .ROUTE .STK-MED ONE Stop: 04/09/21 07:24 Cefazolin Sodium/Dextrose 2 gm (/ Premix) 50 mls @ 100 mls/hr IV ONETIME ONE Stop: 04/09/21 07:01 Last Admin: 04/09/21 09:59 Dose: Not Given Documented by: Ketorolac Tromethamine (Ketorolac 30 Mg/Ml Sdv) Confirm Administered Dose 30 mg .ROUTE .STK-MED ONE Stop: 04/09/21 07:24 Miscellaneous Medication (Phenylephrine Hcl In 0.9% Nacl 1 Mg/10 Ml Syringe) Confirm Administered Dose 1 mg .ROUTE .STK-MED ONE Stop: 04/09/21 07:24 Morphine Sulfate (Morphine Pf 10 Mg/10 Ml Sdv) Confirm Administered Dose 10 mg .ROUTE .STK-MED ONE Stop: 04/09/21 07:25 Ondansetron HCl (Ondansetron 4 Mg/2 Ml Sdv) Confirm Administered Dose 4 mg .ROUTE .STK-MED ONE Stop: 04/09/21 07:24 Oxytocin (Oxytocin 10 Units/1 Ml Sdv) Confirm Administered Dose 30 unit .ROUTE .STK-MED ONE Stop: 04/09/21 07:24 - Infant Interaction Disposition, : to Nursery Support Person: Significant Other - Recovery Exam Fundal Tone: Firm Fundal Level: 1 Fingerbreadths Below Umbilicus Fundal Placement: Midline Episiotomy/Laceration: None Bladder Status: Voiding Urinary Elimination: Voided Other Urinary Elimination, : waiting for post catheter removal void - Exam General: Alert, Oriented HEENT: Pupils Equal, Pupils Reactive Neck: Supple Lungs: Clear to Auscultation, Normal Respiratory Effort Cardiovascular: Regular Rate, Regular Rhythm GI/Abdominal Exam: Normal Bowel Sounds, Soft, Non-Tender Extremities: Normal Inspection, Normal Range of Motion, Non-Tender, No Pedal Edema Skin: Warm, Dry, Intact Wound/Incisions: Healing Well, Dressing Dry and Intact Neurological: No New Focal Deficit Psy/Mental Status: Alert, Normal Affect, Normal Mood - Problem List & Annotations (1) Delivery by section SNOMED Code(s): 347958324 Code(s): [id number] - Status: Acute Current Visit: Yes - Problem List Review Problem List Initiated/Reviewed/Updated: Yes - Assessment Assessment:: 35-year-old female ppd#1 s/p uncomplicated x2. Hbg 9.1 down from 11.6. Denies symptoms. . - Plan Plan:: * Pain controlled * Continue routine care * Will likely discharge tomorrow * Follow-up visit at [facility] in 2 weeks <Shital Cohen - Last Filed: 04/10/21 09:48> - Patient Data Vital Signs - Most Recent: Last Vital Signs Temp 97.4 F 04/10/21 08:00 Pulse 89 04/10/21 08:00 Resp 18 04/10/21 08:00 BP 121/69 04/10/21 08:00 Pulse Ox 95 04/10/21 08:00 I&O - Last 24 Hours: Intake & Output 04/09/21 04/10/21 04/10/21 22:59 06:59 14:59 Intake Total 1764 1698 Output Total 300 1100 600 Balance 1464 598 -600 Lab Results - Last 24 Hours: Laboratory Results - last 24 hr 04/10/21 Range/Units 04:53 WBC 7.23 (4.0-11.0) K/uL RBC 3.08 L (4.30-5.90) M/uL Hgb 9.1 L (12.0-16.0) g/dL Hct 26.2 L (36.0-46.0) % MCV 85.1 (80.0-98.0) fL MCH 29.5 (27.0-32.0) pg MCHC 34.7 (31.0-37.0) g/dL RDW Std Deviation 45.0 (28.0-62.0) fl RDW Coeff of Aziza 15 (11.0-15.0) % Plt Count 120 L (150-400) K/uL MPV 11.80 (7.40-12.00) fL Med Orders - Current: Current Medications Bisacodyl (Bisacodyl 10 Mg Supp) 10 mg RECTAL ONETIME PRN PRN Reason: Constipation Diphenhydramine HCl (Diphenhydramine 50 Mg/Ml Sdv) 25 mg IVPUSH Q6H PRN PRN Reason: Itching or Nausea Diphenhydramine HCl (Diphenhydramine 50 Mg/Ml Sdv) 12.5 mg IVPUSH Q2H PRN PRN Reason: Itching Docusate Sodium (Docusate Sodium 100 Mg Cap) 100 mg PO BID [facility] Last Admin: 04/10/21 09:06 Dose: 100 mg Documented by: Emollient Ointment (Lanolin 100% Cream 7 Gm Tube) 0 gm TOP ASDIRECTED PRN PRN Reason: Sore Nipples Ephedrine Sulfate (Ephedrine 50 Mg/Ml Sdv) 10 mg IVPUSH Q5M PRN PRN Reason: Hypotension Fentanyl (Fentanyl 100 Mcg/2 Ml Sdv) 50 mcg IVPUSH Q1H PRN PRN Reason: Pain (severe 7-10) Oxytocin/Sodium Chloride (Oxytocin 30 Unit/500 Ml-Ns) 30 unit in 500 mls @ 250 mls/hr IV TITRATE [facility] Lactated Ringer's (Ringers, Lactated) 1,000 mls @ 500 mls/hr IV BOLUS [facility] Last Admin: 04/09/21 07:43 Dose: 150 mls/hr Documented by: Lactated Ringer's (Ringers, Lactated) 1,000 mls @ 125 mls/hr IV ASDIRECTED [facility] Last Admin: 04/09/21 22:10 Dose: 125 mls/hr Documented by: Oxytocin/Lactated Ringer's (Pitocin In Lr 30 Units/500 Ml) 30 unit in 500 mls @ 250 mls/hr IV TITRATE [facility]; Protocol Tranexamic Acid 1,000 mg/ (Sodium Chloride) 110 mls @ 660 mls/hr IV ONETIME PRN PRN Reason: Bleeding Ibuprofen (Ibuprofen 800 Mg Tab) 800 mg PO Q8H PRN PRN Reason: mild pain or fever Methylergonovine Maleate (Methylergonovine 0.2 Mg/1 Ml Amp) 0.2 mg IM ONETIME PRN PRN Reason: Excessive Vaginal Bleeding Misoprostol (Misoprostol 200 Mcg Tab) 1,000 mcg RECTAL ONETIME PRN PRN Reason: excessive bleeding Nalbuphine HCl (Nalbuphine 10 Mg/1 Ml Vial) 5 mg IVPUSH ASDIRECTED PRN PRN Reason: Itching Naloxone HCl (Naloxone 0.4 Mg/Ml Syringe) 0.1 mg IVPUSH ONETIME PRN PRN Reason: Respiratory Depression Stop: 04/10/21 11:15 Ondansetron HCl (Ondansetron 4 Mg/2 Ml Sdv) 4 mg IVPUSH Q4H PRN PRN Reason: Nausea/Vomiting Ondansetron HCl (Ondansetron 4 Mg/2 Ml Sdv) 4 mg IVPUSH Q6H PRN PRN Reason: Nausea Oxycodone/Acetaminophen (Acetaminophen/Oxycodone 325-5 Mg Tab) 1 tab PO Q4H PRN PRN Reason: Pain (severe 7-10) Oxycodone/Acetaminophen (Acetaminophen/Oxycodone 325-5 Mg Tab) 2 tab PO Q4H PRN PRN Reason: Pain (severe 7-10) Oxycodone/Acetaminophen (Acetaminophen/Oxycodone 325-5 Mg Tab) 2 tab PO Q6H PRN PRN Reason: Pain (moderate 4-6) Oxytocin (Oxytocin 10 Units/1 Ml Sdv) 10 unit IM ASDIRECTED PRN PRN Reason: Excessive Vaginal Bleeding Sodium Chloride (Sodium Chloride 0.9% 10 Ml Syringe) 10 ml FLUSH ASDIRECTED PRN PRN Reason: Keep Vein Open Sodium Chloride (Sodium Chloride 0.9% 2.5 Ml Syringe) 2.5 ml FLUSH ASDIRECTED PRN PRN Reason: Keep Vein Open Sodium Chloride (Sodium Chloride 0.9% 10 Ml Sdv) 10 ml IV ASDIRECTED PRN PRN Reason: IV Use Discontinued Medications Cefazolin Sodium (Cefazolin 1 Gm Vial) Confirm Administered Dose 2 gm .ROUTE .STK-MED ONE Stop: 04/09/21 08:14 Citric Acid/Sodium Citrate (Citric Acid/Sodium Citrate Solution 30 Ml Cup) 30 ml PO ONETIME ONE Stop: 04/09/21 06:33 Last Admin: 04/09/21 09:59 Dose: Not Given Documented by: Fentanyl (Fentanyl 100 Mcg/2 Ml Sdv) Confirm Administered Dose 100 mcg .ROUTE .STK-MED ONE Stop: 04/09/21 07:24 Cefazolin Sodium/Dextrose 2 gm (/ Premix) 50 mls @ 100 mls/hr IV ONETIME ONE Stop: 04/09/21 07:01 Last Admin: 04/09/21 09:59 Dose: Not Given Documented by: Ketorolac Tromethamine (Ketorolac 30 Mg/Ml Sdv) Confirm Administered Dose 30 mg .ROUTE .STK-MED ONE Stop: 04/09/21 07:24 Ketorolac Tromethamine (Ketorolac 30 Mg/Ml Sdv) 30 mg IVPUSH Q6H [facility] Stop: 04/10/21 09:31 Last Admin: 04/10/21 09:07 Dose: 30 mg Documented by: Miscellaneous Medication (Phenylephrine Hcl In 0.9% Nacl 1 Mg/10 Ml Syringe) Confirm Administered Dose 1 mg .ROUTE .STK-MED ONE Stop: 04/09/21 07:24 Morphine Sulfate (Morphine Pf 10 Mg/10 Ml Sdv) Confirm Administered Dose 10 mg .ROUTE .STK-MED ONE Stop: 04/09/21 07:25 Ondansetron HCl (Ondansetron 4 Mg/2 Ml Sdv) Confirm Administered Dose 4 mg .ROUTE .STK-MED ONE Stop: 04/09/21 07:24 Oxytocin (Oxytocin 10 Units/1 Ml Sdv) Confirm Administered Dose 30 unit .ROUTE .STK-MED ONE Stop: 04/09/21 07:24 - My Orders Last 24 Hours: My Active Orders 04/09/21 09:20 Patient Status [ADT] Routine Ambulate [RC] PER UNIT ROUTINE Communication Order [RC] PER UNIT ROUTINE Communication Order [RC] PER UNIT ROUTINE Communication Order [RC] Per Unit Routine May Shower [RC] ASDIRECTED RT Incentive Spirometry [RC] Q2HWA Vital Signs [RC] PER UNIT ROUTINE Acetaminophen/oxyCODONE [Percocet 325-5 MG] 1 tab PO Q4H PRN Acetaminophen/oxyCODONE [Percocet 325-5 MG] 2 tab PO Q4H PRN Ibuprofen [Motrin] 800 mg PO Q8H PRN Lanolin [Lansinoh HPA] See Dose Instructions TOP ASDIRECTED PRN Methylergonovine [Methergine] 0.2 mg IM ONETIME PRN Ondansetron [Zofran] 4 mg IVPUSH Q4H PRN Oxytocin [Pitocin] 10 unit IM ASDIRECTED PRN Tranexamic Acid [Cyklokapron] 1,000 mg Sodium Chloride 0.9% [Normal Saline] 100 ml IV ONETIME bisacodyL [Dulcolax] 10 mg RECTAL ONETIME PRN diphenhydrAMINE [Benadryl] 25 mg IVPUSH Q6H PRN miSOPROStoL [Cytotec] 1,000 mcg RECTAL ONETIME PRN Assess Lochia [WOMSER] Per Unit Routine Assess Uterine Involution [WOMSER] Per Unit Routine Breast Pump [WOMSER] Per Unit Routine Peripheral IV Discontinue [OM.PC] Routine Sequential Compression Device [OM.PC] Per Unit Routine 04/09/21 09:21 Antiembolic Devices [RC] PER UNIT ROUTINE 04/09/21 09:30 Lactated Ringers [Ringers, Lactated] 1,000 ml IV ASDIRECTED Oxytocin/Lactated Ringers [Pitocin in LR 30 Units/500 ML] 30 unit in 500 ml IV TITRATE 04/09/21 10:00 Notify Provider Intake and Out [RC] ASDIRECTED Notify Provider Vital Signs [RC] ASDIRECTED 04/09/21 Lunch Regular Diet [DIET] 04/09/21 21:00 Docusate Sodium [Colace] 100 mg PO BID - Plan Plan:: Reviewed finding of thrombocytopenia (127> 120). Will repeat CBC at 6 weeks appointment. Bleeding stable post section. Anticipate discharge POD2-3 pending maternal/ status. Continue cares today.
[2021-04-10] MEDS: Docusate Sodium 100 MG Cap PO SCH ×2 (09:06→22:44)
[2021-04-10] MEDS: Ibuprofen 800 MG Tab PO PRN (17:11)
[2021-04-11] MEDS: Ibuprofen 800 MG Tab PO PRN ×2 (01:01→09:03)
[2021-04-11] MEDS: Docusate Sodium 100 MG Cap PO SCH (09:03)
--- NOTE | 2021-04-11 09:18 | PCM.PNPP ---
<Rajni Duffy - Last Filed: 04/11/21 09:52> - General Info Date of Service: 04/11/21 Admission Dx/Problem (Free Text): Repeat section x2 Subjective Update: No new concerns overnight. Pain controlled. Wants to discharge today. Functional Status: Reports: Pain Controlled, Tolerating Diet, Ambulating, Urinating - Review of Systems General: Reports: No Symptoms HEENT: Reports: No Symptoms Pulmonary: Reports: No Symptoms Cardiovascular: Reports: No Symptoms Gastrointestinal: Reports: No Symptoms Genitourinary: Reports: No Symptoms Musculoskeletal: Reports: No Symptoms Skin: Reports: No Symptoms Neurological: Reports: No Symptoms Psychiatric: Reports: No Symptoms - General Info Date of Service: 04/11/21 - Patient Data Vital Signs - Most Recent: Last Vital Signs Temp 36.2 C 04/11/21 05:20 Pulse 72 04/11/21 05:20 Resp 18 04/11/21 05:20 BP 128/74 04/11/21 05:20 Pulse Ox 96 04/11/21 05:20 Weight - Most Recent: 277 lb Med Orders - Current: Current Medications Bisacodyl (Bisacodyl 10 Mg Supp) 10 mg RECTAL ONETIME PRN PRN Reason: Constipation Diphenhydramine HCl (Diphenhydramine 50 Mg/Ml Sdv) 25 mg IVPUSH Q6H PRN PRN Reason: Itching or Nausea Diphenhydramine HCl (Diphenhydramine 50 Mg/Ml Sdv) 12.5 mg IVPUSH Q2H PRN PRN Reason: Itching Docusate Sodium (Docusate Sodium 100 Mg Cap) 100 mg PO BID [facility] Last Admin: 04/11/21 09:03 Dose: 100 mg Documented by: Emollient Ointment (Lanolin 100% Cream 7 Gm Tube) 0 gm TOP ASDIRECTED PRN PRN Reason: Sore Nipples Ephedrine Sulfate (Ephedrine 50 Mg/Ml Sdv) 10 mg IVPUSH Q5M PRN PRN Reason: Hypotension Fentanyl (Fentanyl 100 Mcg/2 Ml Sdv) 50 mcg IVPUSH Q1H PRN PRN Reason: Pain (severe 7-10) Oxytocin/Sodium Chloride (Oxytocin 30 Unit/500 Ml-Ns) 30 unit in 500 mls @ 250 mls/hr IV TITRATE [facility] Lactated Ringer's (Ringers, Lactated) 1,000 mls @ 500 mls/hr IV BOLUS [facility] Last Admin: 04/09/21 07:43 Dose: 150 mls/hr Documented by: Lactated Ringer's (Ringers, Lactated) 1,000 mls @ 125 mls/hr IV ASDIRECTED [facility] Last Admin: 04/09/21 22:10 Dose: 125 mls/hr Documented by: Oxytocin/Lactated Ringer's (Pitocin In Lr 30 Units/500 Ml) 30 unit in 500 mls @ 250 mls/hr IV TITRATE [facility]; Protocol Tranexamic Acid 1,000 mg/ (Sodium Chloride) 110 mls @ 660 mls/hr IV ONETIME PRN PRN Reason: Bleeding Ibuprofen (Ibuprofen 800 Mg Tab) 800 mg PO Q8H PRN PRN Reason: mild pain or fever Last Admin: 04/11/21 09:03 Dose: 800 mg Documented by: Methylergonovine Maleate (Methylergonovine 0.2 Mg/1 Ml Amp) 0.2 mg IM ONETIME PRN PRN Reason: Excessive Vaginal Bleeding Misoprostol (Misoprostol 200 Mcg Tab) 1,000 mcg RECTAL ONETIME PRN PRN Reason: excessive bleeding Nalbuphine HCl (Nalbuphine 10 Mg/1 Ml Vial) 5 mg IVPUSH ASDIRECTED PRN PRN Reason: Itching Ondansetron HCl (Ondansetron 4 Mg/2 Ml Sdv) 4 mg IVPUSH Q4H PRN PRN Reason: Nausea/Vomiting Ondansetron HCl (Ondansetron 4 Mg/2 Ml Sdv) 4 mg IVPUSH Q6H PRN PRN Reason: Nausea Oxycodone/Acetaminophen (Acetaminophen/Oxycodone 325-5 Mg Tab) 1 tab PO Q4H PRN PRN Reason: Pain (severe 7-10) Oxycodone/Acetaminophen (Acetaminophen/Oxycodone 325-5 Mg Tab) 2 tab PO Q4H PRN PRN Reason: Pain (severe 7-10) Oxycodone/Acetaminophen (Acetaminophen/Oxycodone 325-5 Mg Tab) 2 tab PO Q6H PRN PRN Reason: Pain (moderate 4-6) Oxytocin (Oxytocin 10 Units/1 Ml Sdv) 10 unit IM ASDIRECTED PRN PRN Reason: Excessive Vaginal Bleeding Sodium Chloride (Sodium Chloride 0.9% 10 Ml Syringe) 10 ml FLUSH ASDIRECTED PRN PRN Reason: Keep Vein Open Sodium Chloride (Sodium Chloride 0.9% 2.5 Ml Syringe) 2.5 ml FLUSH ASDIRECTED PRN PRN Reason: Keep Vein Open Sodium Chloride (Sodium Chloride 0.9% 10 Ml Sdv) 10 ml IV ASDIRECTED PRN PRN Reason: IV Use Discontinued Medications Cefazolin Sodium (Cefazolin 1 Gm Vial) Confirm Administered Dose 2 gm .ROUTE .STK-MED ONE Stop: 04/09/21 08:14 Citric Acid/Sodium Citrate (Citric Acid/Sodium Citrate Solution 30 Ml Cup) 30 ml PO ONETIME ONE Stop: 04/09/21 06:33 Last Admin: 04/09/21 09:59 Dose: Not Given Documented by: Fentanyl (Fentanyl 100 Mcg/2 Ml Sdv) Confirm Administered Dose 100 mcg .ROUTE .STK-MED ONE Stop: 04/09/21 07:24 Cefazolin Sodium/Dextrose 2 gm (/ Premix) 50 mls @ 100 mls/hr IV ONETIME ONE Stop: 04/09/21 07:01 Last Admin: 04/09/21 09:59 Dose: Not Given Documented by: Ketorolac Tromethamine (Ketorolac 30 Mg/Ml Sdv) Confirm Administered Dose 30 mg .ROUTE .STK-MED ONE Stop: 04/09/21 07:24 Ketorolac Tromethamine (Ketorolac 30 Mg/Ml Sdv) 30 mg IVPUSH Q6H MONICA Stop: 04/10/21 09:31 Last Admin: 04/10/21 09:07 Dose: 30 mg Documented by: Miscellaneous Medication (Phenylephrine Hcl In 0.9% Nacl 1 Mg/10 Ml Syringe) Confirm Administered Dose 1 mg .ROUTE .STK-MED ONE Stop: 04/09/21 07:24 Morphine Sulfate (Morphine Pf 10 Mg/10 Ml Sdv) Confirm Administered Dose 10 mg .ROUTE .STK-MED ONE Stop: 04/09/21 07:25 Naloxone HCl (Naloxone 0.4 Mg/Ml Syringe) 0.1 mg IVPUSH ONETIME PRN PRN Reason: Respiratory Depression Stop: 04/10/21 11:15 Ondansetron HCl (Ondansetron 4 Mg/2 Ml Sdv) Confirm Administered Dose 4 mg .ROUTE .STK-MED ONE Stop: 04/09/21 07:24 Oxytocin (Oxytocin 10 Units/1 Ml Sdv) Confirm Administered Dose 30 unit .ROUTE .STK-MED ONE Stop: 04/09/21 07:24 - Infant Interaction Disposition, : in Room with Family Infant Feeding: Breastfed ; Nursed Well Support Person: Significant Other - Recovery Exam Fundal Tone: Firm Fundal Level: 1 Fingerbreadths Below Umbilicus Fundal Placement: Midline Lochia Amount: Scant Lochia Color: Rubra/Red Perineum Description: Intact, Minimal Bruising/Swelling Episiotomy/Laceration: None Bladder Status: Voiding Urinary Elimination: Voided Other Urinary Elimination, : waiting for post catheter removal void - Exam General: Alert, Oriented HEENT: Pupils Equal, Pupils Reactive, EOMI Neck: Supple Lungs: Clear to Auscultation, Normal Respiratory Effort Cardiovascular: Regular Rate, Regular Rhythm, Tachycardia GI/Abdominal Exam: Normal Bowel Sounds, Soft, Non-Tender Extremities: Normal Inspection, Normal Range of Motion, Non-Tender, No Pedal Edema, Normal Capillary Refill Skin: Warm, Dry, Intact Wound/Incisions: Healing Well, Dressing Dry and Intact Neurological: No New Focal Deficit Psy/Mental Status: Alert, Normal Affect, Normal Mood - Problem List & Annotations (1) Delivery by section SNOMED Code(s): 856473770 Code(s): ERA8346 - Status: Acute Current Visit: Yes - Problem List Review Problem List Initiated/Reviewed/Updated: Yes - Assessment Assessment:: 35-year-old female ppd#2 s/p uncomplicated x2. Hbg 9.1 down from 11.6. Denies symptoms. . - Plan Plan:: Reviewed finding of thrombocytopenia (127> 120). Will repeat CBC at 6 weeks appointment. Bleeding stable post section. Anticipate discharge POD2-3 pending maternal/infant status. Continue cares today. <Shital Cohen - Last Filed: 04/11/21 10:55> - Patient Data Vital Signs - Most Recent: Last Vital Signs Temp 97.2 F 04/11/21 05:20 Pulse 72 04/11/21 05:20 Resp 18 04/11/21 05:20 BP 128/74 04/11/21 05:20 Pulse Ox 96 04/11/21 05:20 Med Orders - Current: Current Medications Bisacodyl (Bisacodyl 10 Mg Supp) 10 mg RECTAL ONETIME PRN PRN Reason: Constipation Diphenhydramine HCl (Diphenhydramine 50 Mg/Ml Sdv) 25 mg IVPUSH Q6H PRN PRN Reason: Itching or Nausea Diphenhydramine HCl (Diphenhydramine 50 Mg/Ml Sdv) 12.5 mg IVPUSH Q2H PRN PRN Reason: Itching Docusate Sodium (Docusate Sodium 100 Mg Cap) 100 mg PO BID [facility] Last Admin: 04/11/21 09:03 Dose: 100 mg Documented by: Emollient Ointment (Lanolin 100% Cream 7 Gm Tube) 0 gm TOP ASDIRECTED PRN PRN Reason: Sore Nipples Ephedrine Sulfate (Ephedrine 50 Mg/Ml Sdv) 10 mg IVPUSH Q5M PRN PRN Reason: Hypotension Fentanyl (Fentanyl 100 Mcg/2 Ml Sdv) 50 mcg IVPUSH Q1H PRN PRN Reason: Pain (severe 7-10) Oxytocin/Sodium Chloride (Oxytocin 30 Unit/500 Ml-Ns) 30 unit in 500 mls @ 250 mls/hr IV TITRATE [facility] Lactated Ringer's (Ringers, Lactated) 1,000 mls @ 500 mls/hr IV BOLUS [facility] Last Admin: 04/09/21 07:43 Dose: 150 mls/hr Documented by: Lactated Ringer's (Ringers, Lactated) 1,000 mls @ 125 mls/hr IV ASDIRECTED [facility] Last Admin: 04/09/21 22:10 Dose: 125 mls/hr Documented by: Oxytocin/Lactated Ringer's (Pitocin In Lr 30 Units/500 Ml) 30 unit in 500 mls @ 250 mls/hr IV TITRATE [facility]; Protocol Tranexamic Acid 1,000 mg/ (Sodium Chloride) 110 mls @ 660 mls/hr IV ONETIME PRN PRN Reason: Bleeding Ibuprofen (Ibuprofen 800 Mg Tab) 800 mg PO Q8H PRN PRN Reason: mild pain or fever Last Admin: 04/11/21 09:03 Dose: 800 mg Documented by: Methylergonovine Maleate (Methylergonovine 0.2 Mg/1 Ml Amp) 0.2 mg IM ONETIME PRN PRN Reason: Excessive Vaginal Bleeding Misoprostol (Misoprostol 200 Mcg Tab) 1,000 mcg RECTAL ONETIME PRN PRN Reason: excessive bleeding Nalbuphine HCl (Nalbuphine 10 Mg/1 Ml Vial) 5 mg IVPUSH ASDIRECTED PRN PRN Reason: Itching Ondansetron HCl (Ondansetron 4 Mg/2 Ml Sdv) 4 mg IVPUSH Q4H PRN PRN Reason: Nausea/Vomiting Ondansetron HCl (Ondansetron 4 Mg/2 Ml Sdv) 4 mg IVPUSH Q6H PRN PRN Reason: Nausea Oxycodone/Acetaminophen (Acetaminophen/Oxycodone 325-5 Mg Tab) 1 tab PO Q4H PRN PRN Reason: Pain (severe 7-10) Oxycodone/Acetaminophen (Acetaminophen/Oxycodone 325-5 Mg Tab) 2 tab PO Q4H PRN PRN Reason: Pain (severe 7-10) Oxycodone/Acetaminophen (Acetaminophen/Oxycodone 325-5 Mg Tab) 2 tab PO Q6H PRN PRN Reason: Pain (moderate 4-6) Oxytocin (Oxytocin 10 Units/1 Ml Sdv) 10 unit IM ASDIRECTED PRN PRN Reason: Excessive Vaginal Bleeding Sodium Chloride (Sodium Chloride 0.9% 10 Ml Syringe) 10 ml FLUSH ASDIRECTED PRN PRN Reason: Keep Vein Open Sodium Chloride (Sodium Chloride 0.9% 2.5 Ml Syringe) 2.5 ml FLUSH ASDIRECTED PRN PRN Reason: Keep Vein Open Sodium Chloride (Sodium Chloride 0.9% 10 Ml Sdv) 10 ml IV ASDIRECTED PRN PRN Reason: IV Use Discontinued Medications Cefazolin Sodium (Cefazolin 1 Gm Vial) Confirm Administered Dose 2 gm .ROUTE .STK-MED ONE Stop: 04/09/21 08:14 Citric Acid/Sodium Citrate (Citric Acid/Sodium Citrate Solution 30 Ml Cup) 30 ml PO ONETIME ONE Stop: 04/09/21 06:33 Last Admin: 04/09/21 09:59 Dose: Not Given Documented by: Fentanyl (Fentanyl 100 Mcg/2 Ml Sdv) Confirm Administered Dose 100 mcg .ROUTE .STK-MED ONE Stop: 04/09/21 07:24 Cefazolin Sodium/Dextrose 2 gm (/ Premix) 50 mls @ 100 mls/hr IV ONETIME ONE Stop: 04/09/21 07:01 Last Admin: 04/09/21 09:59 Dose: Not Given Documented by: Ketorolac Tromethamine (Ketorolac 30 Mg/Ml Sdv) Confirm Administered Dose 30 mg .ROUTE .STK-MED ONE Stop: 04/09/21 07:24 Ketorolac Tromethamine (Ketorolac 30 Mg/Ml Sdv) 30 mg IVPUSH Q6H MONICA Stop: 04/10/21 09:31 Last Admin: 04/10/21 09:07 Dose: 30 mg Documented by: Miscellaneous Medication (Phenylephrine Hcl In 0.9% Nacl 1 Mg/10 Ml Syringe) Confirm Administered Dose 1 mg .ROUTE .STK-MED ONE Stop: 04/09/21 07:24 Morphine Sulfate (Morphine Pf 10 Mg/10 Ml Sdv) Confirm Administered Dose 10 mg .ROUTE .STK-MED ONE Stop: 04/09/21 07:25 Naloxone HCl (Naloxone 0.4 Mg/Ml Syringe) 0.1 mg IVPUSH ONETIME PRN PRN Reason: Respiratory Depression Stop: 04/10/21 11:15 Ondansetron HCl (Ondansetron 4 Mg/2 Ml Sdv) Confirm Administered Dose 4 mg .ROUTE .STK-MED ONE Stop: 04/09/21 07:24 Oxytocin (Oxytocin 10 Units/1 Ml Sdv) Confirm Administered Dose 30 unit .ROUTE .STK-MED ONE Stop: 04/09/21 07:24 - My Orders Last 24 Hours: My Active Orders 04/11/21 10:53 Ready for Discharge [RC] PER UNIT ROUTINE - Plan Plan:: Agree with above. Reviewed discharge instructions. Anticipate discharge today. Patient to follow up for incision check at 2 week postoperative appointment at [facility].
[2021-04-11 12:38] VITALS: BP 136/82; PULSE 88
== END 2021-04-11 12:30 | disposition home or self-care (01) | DRG 788 ==
LOC: MW.OB 05:15
PROVIDERS: ADMIT Obstetrics & Gynecology; ATTEND Obstetrics & Gynecology
PROC: 10D00Z1 Extraction of Products of Conception, Low, Open Approach (ICD-10-PCS; principal; 2021-04-09)
DX: O34.211 Maternal care for low transverse scar from previous cesarean delivery (principal); Z37.0 Single live birth; O99.214 Obesity complicating childbirth; O99.824 Streptococcus B carrier state complicating childbirth; Z3A.39 39 weeks gestation of pregnancy
CPT/HCPCS: 01961; 36415; 59025; 85027; 86592; 86850; 86900; 86901; A9270-GY; J0690; J1885; J2270; J2370; J2405; J2590; J3010; J7120